=== PATIENT | female | born 1995 | race Caucasian/White ===

== ENCOUNTER → 2023-10-10 07:19 | Outpatient (REF) | payer BC, SELFPAY | LOC: PNTC 07:19 | PROVIDERS: ATTENDING PHYSICIAN Obstetrics & Gynecology | DX: O99.210 Obesity complicating pregnancy, unspecified trimester (principal) | CPT/HCPCS: 76816 ==

== ENCOUNTER → 2023-11-21 06:54 | Outpatient (REF) | payer BC, SELFPAY | LOC: PNTC 06:54 | PROVIDERS: ATTENDING PHYSICIAN Obstetrics & Gynecology | DX: O99.210 Obesity complicating pregnancy, unspecified trimester (principal) | CPT/HCPCS: 76816 ==

== ENCOUNTER 2023-12-07 18:05 | Observation (INO) | payer BC, SELFPAY ==
[2023-12-07 18:13] VITALS: BP 144/93; BMI 40.9
[2023-12-07 18:53] LABS: Hematocrit 33.4 % (37.0-47.0); Hemoglobin 10.8 g/dL (12.0-16.0); Mean Corp Hgb Conc. 32.3 g/dL (33.0-37.0); Mean Corpuscular Hgb 26.8 pg (27.0-31.0); Mean Corpuscular Volume 82.9 fL (81.0-99.0); Mean Platelet Volume 10.8 fL (7.4-10.4); Platelet Count 180 10^3/uL (130-400); Red Blood Cell Count 4.03 10^6/uL (4.20-5.40); Red Cell Dist. Width 13.6 % (11.5-14.5); White Blood Cell Count 9.4 10^3/uL (4.8-10.8)
[2023-12-07 18:57] LABS: Urine Albumin Negative (Neg - Trace); Urine Bilirubin Negative (Negative); Urine Character Clear (Clear); Urine Color Yellow; Urine Glucose Negative (Negative); Urine Ketone Negative (Negative); Urine Leukocyte Trace (Negative); Urine Nitrite Negative (Negative); Urine Occult Blood Negative (Negative); Urine Urobilinogen Negative (Neg - 1+)
[2023-12-07 19:04] LABS: Urine Squamous Cell >30 /LPF (Few)
[2023-12-07 19:05] LABS: Urine Bacteria Few (Negative); Urine Red Blood Cell 0-2 /HPF (0-2)
[2023-12-07 19:09] LABS: ALT (SGPT) 12 U/L (0-35); AST (SGOT) 25 U/L (14-36); Albumin 3.6 g/dl (3.5-5.0); Alkaline Phosphatase 112 U/L (38-126); Blood Urea Nitrogen 13 mg/dl (7-17); Calcium 9.2 mg/dl (8.4-10.2); Carbon Dioxide 20 mmol/L (22-30); Chloride 108 mmol/L (98-107); Estimated Creatinine Clearance > 125 ml/min; Glucose 91 mg/dl (70-99); Potassium 3.9 mmol/L (3.5-5.1); Sodium 133 mmol/L (135-145); Total Bilirubin 0.2 mg/dl (0.2-1.3); Total Protein 6.4 g/dl (6.3-8.2); eGFR > 60.00
[2023-12-07 19:10] LABS: Protein/creatinine Ratio 0.1; Urine Protein 8 mg/dl
== END 2023-12-07 20:20 | disposition home or self-care (01) ==
LOC: LDRP 18:05
PROVIDERS: ADMITTING PHYSICIAN Obstetrics & Gynecology; FAMILY PHYSICIAN Internal Medicine
DX: O32.1XX0 Maternal care for breech presentation, not applicable or unspecified (principal); O99.213 Obesity complicating pregnancy, third trimester; Z3A.36 36 weeks gestation of pregnancy; R03.0 Elevated blood-pressure reading, without diagnosis of hypertension; Z88.1 Allergy status to other antibiotic agents
CPT/HCPCS: 80053; 81003; 81015; 82570; 84156; 85027; 86850; 86900; 86901; G0378

== ENCOUNTER 2023-12-09 09:58 | Inpatient (IN) | payer BC, SELFPAY ==
[2023-12-09 10:01] VITALS: BMI 40.9
[2023-12-09 10:05] VITALS: BP 148/99
[2023-12-09] MEDS: LR 1000 IV ×2 (10:15→12:00)
[2023-12-09 10:40] LABS: Hematocrit 34.6 % (37.0-47.0); Hemoglobin 11.6 g/dL (12.0-16.0); Mean Corp Hgb Conc. 33.5 g/dL (33.0-37.0); Mean Corpuscular Hgb 26.9 pg (27.0-31.0); Mean Corpuscular Volume 80.1 fL (81.0-99.0); Mean Platelet Volume 10.9 fL (7.4-10.4); Platelet Count 193 10^3/uL (130-400); Red Blood Cell Count 4.32 10^6/uL (4.20-5.40); Red Cell Dist. Width 13.7 % (11.5-14.5); White Blood Cell Count 8.4 10^3/uL (4.8-10.8)
[2023-12-09] MEDS: BICITRA 30 ML PO (11:35)
[2023-12-09] MEDS: ANCEF 10 IV (11:35)
[2023-12-09] MEDS: TYLENOL 1000 MG PO (11:35)
[2023-12-09] MEDS: PITOCIN 30 UNITS/NSS 500 ML IV (14:15)
[2023-12-09] MEDS: TORADOL 15 MG IV (19:08)
[2023-12-09] MEDS: PRENATAL PLUS 1 TABLET PO (21:43)
[2023-12-10] MEDS: TORADOL 15 MG IV ×3 (01:10→13:17)
[2023-12-10] MEDS: FLUSH (NSS) 2 FLUSH IV ×2 (01:12→06:33)
[2023-12-10 05:27] LABS: Hematocrit 28.1 % (37.0-47.0); Hemoglobin 9.1 g/dL (12.0-16.0); Mean Corp Hgb Conc. 32.4 g/dL (33.0-37.0); Mean Corpuscular Hgb 27.2 pg (27.0-31.0); Mean Corpuscular Volume 83.9 fL (81.0-99.0); Mean Platelet Volume 10.9 fL (7.4-10.4); Platelet Count 152 10^3/uL (130-400); Red Blood Cell Count 3.35 10^6/uL (4.20-5.40); Red Cell Dist. Width 13.7 % (11.5-14.5); White Blood Cell Count 10.3 10^3/uL (4.8-10.8)
--- NOTE | 2023-12-10 16:29 | W.PN.ANS.POP ---
Anesthesia Post Operative
- Anesthesia Post Op Note
Vital Signs Stable-See Nursing Note: Yes
Airway Patent: Yes
Adequate Pain Control: Yes
Change in Mental Status: No
Current Postoperative Nausea & Vomiting: No
Anesthesia Complications: No
General Anesthetic Recall: No
Unplanned Admission: No
Post Op Hydration Adequate: Yes
[2023-12-10] MEDS: SENOKOT-S 1 TABLET PO (19:45)
[2023-12-10] MEDS: MOTRIN 600 MG PO (19:45)
[2023-12-10] MEDS: TYLENOL 650 MG PO (19:45)
[2023-12-11] MEDS: MOTRIN 600 MG PO ×2 (02:56→09:25)
[2023-12-11] MEDS: TYLENOL 650 MG PO ×2 (02:56→09:25)
[2023-12-11] MEDS: PRENATAL PLUS 1 TABLET PO (02:57)
[2023-12-11] MEDS: FEOSOL 325 MG PO (09:13)
[2023-12-11] MEDS: SENOKOT-S 1 TABLET PO (09:25)
--- NOTE | 2023-12-12 11:01 | W.DS.TRANS ---
DC Summary - Sales Representatives
-
Discharge Instructions:
Discharge Diagnosis/Procedures section
Instructions:
Stand-Alone Forms: LDRP Delivery
LDRP Hypertensive Disorders
Changes to Home Medications: No
Discharge Medications:
DC Medications w/original date entered in [facility]
loratadine 10 mg tablet (Claritin) 10 mg PO HS Allergies 12/07/23
prenat.vits,janak,wmf-lkoe-bfgkp 1 tab PO HS Supplement 12/07/23
acetaminophen 325 mg tablet 650 mg (2 x 325 mg) PO Q4HPRN PRN mild pain #0 tabs 12/11/23
ferrous sulfate 325 mg (65 mg iron) tablet (FeroSul) 325 mg PO DAILY #0 tabs 12/11/23
ibuprofen 600 mg tablet 600 mg PO Q6HPRN PRN cramps #45 tabs 12/11/23
sennosides 8.6 mg-docusate sodium 50 mg tablet (Stool Softener-Stimulant Laxative) 1 tab PO DAILYPRN PRN constipation #0 tabs 12/11/23
Home Medication Changes
Pending Results: No
[2023-12-13 14:53] LABS: Syphilis/T. pallidum Ab Reflex Negative (Negative)
== END 2023-12-11 13:32 | disposition home or self-care (01) | DRG 788 ==
LOC: LDRP 09:58
PROVIDERS: ADMITTING PHYSICIAN Obstetrics & Gynecology; FAMILY PHYSICIAN Obstetrics & Gynecology
PROC: 10D00Z1 Extraction of Products of Conception, Low, Open Approach (ICD-10-PCS; 2023-12-09)
DX: O32.1XX0 Maternal care for breech presentation, not applicable or unspecified (principal); O99.214 Obesity complicating childbirth; O13.4 Gestational [pregnancy-induced] hypertension without significant proteinuria, complicating childbirth; O34.13 Maternal care for benign tumor of corpus uteri, third trimester; D25.2 Subserosal leiomyoma of uterus; Z37.0 Single live birth; Z3A.37 37 weeks gestation of pregnancy
CPT/HCPCS: 85027; 86780; 86850; 86900; 86901

== ENCOUNTER → 2024-11-28 07:16 | Outpatient (REF) | payer BC, SELFPAY | LOC: PNTC 07:16 | PROVIDERS: ATTENDING PHYSICIAN Obstetrics & Gynecology | DX: Z36.0 Encounter for antenatal screening for chromosomal anomalies (principal); Z36.82 Encounter for antenatal screening for nuchal translucency | CPT/HCPCS: 36415; 76801; 76813 ==

== ENCOUNTER → 2024-12-27 08:06 | Outpatient (REF) | payer BC, SELFPAY | LOC: PNTC 08:06 | PROVIDERS: ATTENDING PHYSICIAN Obstetrics & Gynecology | DX: O99.210 Obesity complicating pregnancy, unspecified trimester (principal); O43.219 Placenta accreta, unspecified trimester | CPT/HCPCS: 76805; 93976 ==

== ENCOUNTER → 2025-01-28 06:56 | Outpatient (REF) | payer BC, SELFPAY | LOC: PNTC 06:56 | PROVIDERS: ATTENDING PHYSICIAN Obstetrics & Gynecology | DX: O99.210 Obesity complicating pregnancy, unspecified trimester (principal) | CPT/HCPCS: 76811; 76817 ==

== ENCOUNTER → 2025-02-25 06:58 | Outpatient (REF) | payer BC, SELFPAY | LOC: PNTC 06:58 | PROVIDERS: ATTENDING PHYSICIAN Obstetrics & Gynecology | DX: O99.210 Obesity complicating pregnancy, unspecified trimester (principal) | CPT/HCPCS: 76816 ==

== ENCOUNTER → 2025-03-25 07:04 | Outpatient (REF) | payer BC, SELFPAY | LOC: PNTC 07:04 | PROVIDERS: ATTENDING PHYSICIAN Student in an Organized Health Care Education/Training Program | DX: O99.210 Obesity complicating pregnancy, unspecified trimester (principal) | CPT/HCPCS: 76816 ==

== ENCOUNTER → 2025-04-22 07:07 | Outpatient (REF) | payer BC, SELFPAY | LOC: PNTC 07:07 | PROVIDERS: ATTENDING PHYSICIAN Obstetrics & Gynecology | DX: O99.213 Obesity complicating pregnancy, third trimester (principal) | CPT/HCPCS: 76816 ==

== ENCOUNTER → 2025-05-01 07:57 | Outpatient (REF) | payer BC, SELFPAY | LOC: PNTC 07:57 | PROVIDERS: ATTENDING PHYSICIAN Student in an Organized Health Care Education/Training Program | DX: O99.213 Obesity complicating pregnancy, third trimester (principal) | CPT/HCPCS: 59025; 76815 ==

== ENCOUNTER → 2025-05-08 08:04 | Outpatient (REF) | payer BC, SELFPAY | LOC: PNTC 08:04 | PROVIDERS: ATTENDING PHYSICIAN Student in an Organized Health Care Education/Training Program | DX: O09.529 Supervision of elderly multigravida, unspecified trimester (principal); O99.210 Obesity complicating pregnancy, unspecified trimester | CPT/HCPCS: 59025; 76815 ==

== ENCOUNTER 2025-05-15 08:45 | Observation (INO) | payer BC, SELFPAY ==
[2025-05-15 09:18] VITALS: BP 134/73; BMI 40.4
[2025-05-15 09:37] LABS: Hematocrit 34.2 % (37.0-47.0); Hemoglobin 11.1 g/dL (12.0-16.0); Mean Corp Hgb Conc. 32.5 g/dL (33.0-37.0); Mean Corpuscular Volume 80.7 fL (81.0-99.0); Nucleated Red Blood Cells % 0 %; Platelet Count 184 10^3/uL (130-400); Red Cell Dist. Width 13.8 % (11.5-14.5)
[2025-05-15 09:46] LABS: ALT (SGPT) 10 U/L (0-35); AST (SGOT) 17 U/L (14-36); Albumin 3.6 g/dl (3.5-5.0); Alkaline Phosphatase 94 U/L (38-126); Blood Urea Nitrogen 8 mg/dl (7-17); Calcium 9.2 mg/dl (8.4-10.2); Carbon Dioxide 25 mmol/L (22-30); Chloride 107 mmol/L (98-107); Estimated Creatinine Clearance > 125 ml/min; Glucose 90 mg/dl (70-99); Potassium 4.5 mmol/L (3.5-5.1); Sodium 136 mmol/L (135-145); Total Protein 6.5 g/dl (6.3-8.2); eGFR > 60.00
[2025-05-15 10:03] LABS: Urine Character Clear (Clear)
== END 2025-05-15 11:00 | disposition home or self-care (01) ==
LOC: PNTC-IN 08:45
PROVIDERS: ADMITTING PHYSICIAN Obstetrics & Gynecology; ATTENDING PHYSICIAN Student in an Organized Health Care Education/Training Program
DX: O14.03 Mild to moderate pre-eclampsia, third trimester (principal); Z3A.36 36 weeks gestation of pregnancy; Z88.1 Allergy status to other antibiotic agents
CPT/HCPCS: 59025; 76816; 80053; 81003; 82570; 84156; 85025; G0378

== ENCOUNTER → 2025-05-22 07:51 | Outpatient (REF) | payer BC, SELFPAY | LOC: PNTC 07:51 | PROVIDERS: ATTENDING PHYSICIAN Student in an Organized Health Care Education/Training Program | DX: O99.210 Obesity complicating pregnancy, unspecified trimester (principal); O09.529 Supervision of elderly multigravida, unspecified trimester | CPT/HCPCS: 59025; 76815 ==

== ENCOUNTER 2025-05-29 11:02 | Inpatient (IN) | payer BC, SELFPAY ==
[2025-05-29 09:36] VITALS: BP 144/101; BMI 41.8
[2025-05-29] MEDS: LR 1000 IV (10:15)
[2025-05-29 10:45] LABS: Hematocrit 35.6 % (37.0-47.0); Hemoglobin 11.7 g/dL (12.0-16.0); Mean Corp Hgb Conc. 32.9 g/dL (33.0-37.0); Mean Corpuscular Volume 80.7 fL (81.0-99.0); Platelet Count 177 10^3/uL (130-400); Red Cell Dist. Width 13.6 % (11.5-14.5)
[2025-05-29 10:58] LABS: ALT (SGPT) < 10 U/L (0-35); AST (SGOT) 19 U/L (14-36); Albumin 3.6 g/dl (3.5-5.0); Alkaline Phosphatase 102 U/L (38-126); Blood Urea Nitrogen 8 mg/dl (7-17); Calcium 9.3 mg/dl (8.4-10.2); Carbon Dioxide 23 mmol/L (22-30); Chloride 108 mmol/L (98-107); Estimated Creatinine Clearance > 125 ml/min; Glucose 76 mg/dl (70-99); Potassium 4.3 mmol/L (3.5-5.1); Sodium 134 mmol/L (135-145); Total Protein 6.5 g/dl (6.3-8.2); eGFR > 60.00
[2025-05-29] MEDS: TYLENOL 975 MG PO (12:38)
[2025-05-29] MEDS: BICITRA 30 ML PO (12:40)
[2025-05-29] MEDS: ANCEF 15 MG IV (12:41)
[2025-05-29] MEDS: TORADOL 15 MG IV (20:17)
[2025-05-29] MEDS: COLACE 100 MG PO (20:27)
[2025-05-30] MEDS: TORADOL 15 MG IV ×3 (01:41→15:26)
[2025-05-30 04:55] LABS: Hematocrit 30.4 % (37.0-47.0); Hemoglobin 9.9 g/dL (12.0-16.0); Mean Corp Hgb Conc. 32.6 g/dL (33.0-37.0); Mean Corpuscular Volume 80.9 fL (81.0-99.0); Platelet Count 170 10^3/uL (130-400); Red Cell Dist. Width 13.6 % (11.5-14.5)
[2025-05-30] MEDS: PRENATAL PLUS 1 TABLET PO (08:28)
[2025-05-30] MEDS: CLARITIN 10 MG PO (08:28)
[2025-05-30] MEDS: COLACE 100 MG PO ×2 (08:28→20:31)
[2025-05-30] MEDS: FEOSOL 325 MG PO (15:26)
[2025-05-30] MEDS: TYLENOL 650 MG PO (21:42)
[2025-05-30] MEDS: MOTRIN 600 MG PO (21:43)
[2025-05-31] MEDS: MOTRIN 600 MG PO ×2 (03:55→10:01)
[2025-05-31] MEDS: TYLENOL 650 MG PO ×2 (03:55→10:02)
[2025-05-31] MEDS: COLACE 100 MG PO (08:16)
[2025-05-31] MEDS: CLARITIN 10 MG PO (08:16)
[2025-05-31] MEDS: PRENATAL PLUS 1 TABLET PO (08:17)
[2025-05-31] MEDS: FEOSOL 325 MG PO (08:17)
[2025-05-31] MEDS: SENOKOT 17.2 MG PO (08:36)
[2025-05-31 14:49] LABS: Syphilis/T. pallidum Ab Reflex Negative (Negative)
== END 2025-05-31 11:06 | disposition home or self-care (01) | DRG 788 ==
LOC: LDRP 11:02
PROVIDERS: ADMITTING PHYSICIAN Obstetrics & Gynecology; ATTENDING PHYSICIAN Student in an Organized Health Care Education/Training Program
PROC: 10D00Z1 Extraction of Products of Conception, Low, Open Approach (ICD-10-PCS; 2025-05-29)
DX: O14.04 Mild to moderate pre-eclampsia, complicating childbirth (principal); O34.211 Maternal care for low transverse scar from previous cesarean delivery; Z37.0 Single live birth; D25.2 Subserosal leiomyoma of uterus; O34.13 Maternal care for benign tumor of corpus uteri, third trimester; Z3A.39 39 weeks gestation of pregnancy
CPT/HCPCS: 59025; 76816; 80053; 85027; 86780; 86850; 86900; 86901; 88307